=== PATIENT | male | born 1950 | race Caucasian/White ===

== ENCOUNTER 2023-08-12 14:02 | Inpatient (IN) | payer OTHER ==
[~2023-08-12] VITALS: Ht 172.7 cm; Wt 86.2 kg
[2023-08-12] VITALS (10 sets, daily range): BP systolic 84–146; BP diastolic 53–81; TEMP 98.1; O2SAT 95–100
[2023-08-12] MEDS ORDERED: ONDANSETRON HCL/PF 4 MG/2 ML VIAL ONE (14:16)
[2023-08-12 14:29] LABS: BASOPHILS # (AUTO) 0.1 K/uL (0.0-0.2); BASOPHILS % (AUTO) 0.7 % (0.0-2.0); EOSINOPHILS % (AUTO) 0.1 % (0.0-6.0); HEMATOCRIT 49 % (39-51); HEMOGLOBIN 16.5 g/dL (13.5-17.5); LYMPHOCYTES # (AUTO) 1.5 K/uL (0.8-4.8); LYMPHOCYTES % (AUTO) 10.1 % (20.0-44.0); MEAN CORPUSCULAR HEMOGLOBIN 30 PG (26.0-33.0); MEAN CORPUSCULAR HGB CONC 34 g/dl (31.0-36.0); MEAN CORPUSCULAR VOLUME 90 fL (80-96); MONOCYTES # (AUTO) 0.6 K/uL (0.1-1.30); MONOCYTES % (AUTO) 3.9 % (2.0-12.0); NEUTROPHILS # (AUTO) 12.3 K/uL (1.8-8.9); NEUTROPHILS % (AUTO) 85.2 % (43.0-81.0); PLATELET COUNT (AUTO) 231 K/uL (150-450); RED BLOOD CELL COUNT(AUTO) 5.49 MIL/uL (4.5-6.0); RED CELL DISTRIBUTION WIDTH 13.9 % (11.5-15.0); WHITE BLOOD COUNT (AUTO) 14.4 K/uL (4.3-11.0)
[2023-08-12] MEDS ORDERED: IV NS 0.9% 1,000 ML BAG IV ONE (14:30)
[2023-08-12 14:39] LABS: ABG OXYGEN SATURATION 96.5 % (92.0-98.5); ABG PCO2 40.7 mmHg (35.0-45.0); ABG PH 7.178 (7.350-7.450); ABG PO2 80.6 mmHg (75.0-100.0); ABG TOTAL HEMOGLOBIN 17.9 G/dL (13.5-18.0); COHb 0.9 % (0.5-1.5); MetHb 0.6 % (0.0-1.5); O2Hb 95.1 % (94.0-97.0); SITE, ABG Right Radial; VENT MODE, BG 15L NRB
[2023-08-12] MEDS ORDERED: NALOXONE PREFILLED SYRINGE 2 MG/2 ML SYRINGE ONE (14:41)
[2023-08-12] MEDS ORDERED: LABETALOL HCL IV 100MG VIAL ONE (14:41)
[2023-08-12 14:46] LABS: APPEARANCE,URINE CLEAR (CLEAR); BILIRUBIN,URINE 1+ (NEGATIVE); BLOOD, URINE 1+ Ery/uL (NEGATIVE); COLOR,URINE YELLOW (YELLOW); KETONES,URINE TRACE mg/dL (NEGATIVE); LEUKOCYTE ESTERASE ,URINE NEGATIVE (NEGATIVE); NITRITE, URINE NEGATIVE (NEGATIVE); PROTEIN,URINE 2+ mg/dl (NEGATIVE); UGLUCOSE TRACE mg/dL (NEGATIVE)
[2023-08-12] MEDS ORDERED: PROPOFOL 100 ML ONE (14:57)
[2023-08-12 14:59] LABS: ACETAMINOPHEN < 10 ug/ml (10-30); ALANINE AMINOTRANSFERASE 188 U/L (12-78); ALCOHOL, BLOOD < 3 mg/dL (0-10); ALKALINE PHOSPHATASE 87 U/L (46-116); ASPARTATE AMINOTRANSFERASE 93 U/L (15-37); BILIRUBIN,DIRECT 0.2 mg/dL (0.0-0.2); BILIRUBIN,TOTAL 0.6 mg/dL (0.2-1.0); CARBON DIOXIDE 24 mmol/L (21-32); CHLORIDE 101 mmol/L (98-107); CREATININE 4.1 mg/dL (0.6-1.3); GLUCOSE 142 mg/dL (74-106); SODIUM SERUM 136 mmol/L (136-145); TOTAL PROTEIN, SERUM 7.2 g/dL (6.4-8.2); UREA NITROGEN, BLOOD 33 mg/dL (7-18)
[2023-08-12] MEDS ORDERED: LABETALOL 20 MG/4 ML VIAL IV ONE (15:00)
[2023-08-12] MEDS ORDERED: NALOXONE HCL 0.4 MG/ML AMPUL IV ONE (15:00)
[2023-08-12 15:01] LABS: CREATINE KINASE, TOTAL 2337 U/L (39-308)
[2023-08-12 15:04] LABS: LACTIC ACID 4.1 mmol/L (0.4-2.0)
[2023-08-12 15:05] LABS: AMPHETAMINE, URINE NEGATIVE (NEGATIVE); BARBITURATE, URINE NEGATIVE (NEGATIVE); BENZODIAZEPINE, URINE NEGATIVE (NEGATIVE); CANNABINOID, URINE NEGATIVE (NEGATIVE); COCCAINE, URINE NEGATIVE (NEGATIVE); PHENCYCLIDINE SCREEN,URINE NEGATIVE (NEGATIVE); SALICYLATE 0.7 mg/dL (2.8-20.0)
[2023-08-12 15:06] LABS: POTASSIUM 6.2 mmol/L (3.5-5.1)
[2023-08-12 15:07] LABS: OPIATE, URINE POSITIVE (NEGATIVE)
[2023-08-12] MEDS ORDERED: TERA10CA4 PO (15:13)
[2023-08-12] MEDS ORDERED: OXYC1TAB12 PO (15:13)
[2023-08-12] MEDS ORDERED: LIDO30AD10 TP (15:13)
[2023-08-12] MEDS ORDERED: OMEP-99 PO (15:13)
[2023-08-12] MEDS ORDERED: FLUT16SP16 (15:13)
[2023-08-12] MEDS ORDERED: IBUP-1957 PO (15:13)
[2023-08-12] MEDS ORDERED: FINA5TAB11 PO (15:13)
[2023-08-12] MEDS ORDERED: DULO20CA19 PO (15:13)
[2023-08-12] MEDS ORDERED: GABA600T12 PO (15:13)
[2023-08-12] MEDS ORDERED: ROSU10TA29 PO (15:13)
[2023-08-12] MEDS ORDERED: METO25TA20 PO (15:13)
[2023-08-12] MEDS ORDERED: ROCURONIUM BROMIDE 100 MG/10 ML VIAL IV ONE (15:30)
[2023-08-12] MEDS ORDERED: ETOMIDATE 2 MG/ML VIAL IV ONE (15:30)
[2023-08-12] MEDS ORDERED: PROPOFOL 100 ML IV ONE (15:30)
[2023-08-12 15:34] LABS: ADD URINE CULTURE NO; BACTERIA,URINE RARE /HPF (None Seen); COARSE GRANULAR CASTS,URINE Few /LPF (None Seen); HYALINE CASTS, URINE Few /LPF (None Seen); WBC,URINE 0-2 /HPF (0-3)
[2023-08-12] MEDS ORDERED: VANCOMYCIN 1 GM in IV D5W 250 ML IV ONE (17:00)
[2023-08-12] MEDS ORDERED: ACETYLCYSTEINE 20% ORAL SOLN 6,000 MG/30 ML VIAL PO ONE ×2 (17:00)
[2023-08-12] MEDS ORDERED: FAMOTIDINE/PF INJ 20 MG/2 ML VIAL IV SCH (17:00)
[2023-08-12] MEDS ORDERED: PIPERACILLIN /TAZOBACTAM 3.375 G in IV D5W 50 ML IV SCH (17:00)
[2023-08-12] MEDS ORDERED: CEFEPIME 1 GM in IV D5W 50 ML IV ONE (17:00)
[2023-08-12] MEDS: IV NS 0.9% 250 ML IV PRN (17:44)
[2023-08-12] MEDS: Sodium Bicarbonate 100 MEQ in IV D5W 1,000 ML IV SCH (17:52)
[2023-08-12] MEDS: ZOSYN IVPB 2.25 G in IV D5W 50ml IV SCH ×2 (17:53→23:18)
[2023-08-12] MEDS ORDERED: IV LR 1000 ML 1,000 ML IV PRN ×2 (19:30)
[2023-08-12] MEDS ORDERED: Z GUARD REMEDY 4 OZ OINT TP PRN (19:30)
[2023-08-12] MEDS ORDERED: NOREPINEPHRINE 8 MG in IV NS 0.9% 242 ML IV PRN (19:30)
[2023-08-12] MEDS ORDERED: JEVITY 1.2 CAL 1,000 ML BOTTLE GT PRN (20:00)
[2023-08-12 20:13] LABS: LACTIC ACID 4.4 mmol/L (0.4-2.0)
[2023-08-12 20:15] LABS: THYROID STIMULATING HORMONE 1.616 uIU/mL (0.358-3.74)
[2023-08-12] MEDS ORDERED: ENOXAPARIN SODIUM 40 MG/0.4 ML DISP.SYRIN SQ SCH (21:30)
[2023-08-12] MEDS: PANTOPRAZOLE 40 MG VIAL IV SCH (21:51)
[2023-08-12] MEDS ORDERED: ENOXAPARIN SODIUM 30 MG/0.3 ML DISP.SYRIN SQ SCH (22:00)
[2023-08-12] MEDS: NOREPINEPHRINE 8 MG in IV NS 0.9% 242 ML IV PRN (23:16)
[2023-08-13] VITALS (92 sets, daily range): BP systolic 89–132; BP diastolic 51–61; TEMP 97.6–98; O2SAT 22–100
[2023-08-13] MEDS ORDERED: PIPERACILLIN /TAZOBACTAM 3.375 G in IV D5W 50 ML IV SCH ×2
[2023-08-13 00:44] LABS: HEMOGLOBIN 15.2 g/dL (13.5-17.5)
[2023-08-13] MEDS: Sodium Bicarbonate 100 MEQ in IV D5W 1,000 ML IV SCH ×3 (03:14→18:38)
[2023-08-13 04:30] LABS: ABG BASE EXCESS -5.6 mmol/L; ABG OXYGEN SATURATION 97.4 % (92.0-98.5); ABG PCO2 37.9 mmHg (35.0-45.0); ABG PH 7.332 (7.350-7.450); ABG PO2 95.5 mmHg (75.0-100.0); ABG TOTAL HEMOGLOBIN 15.9 G/dL (13.5-18.0); AaDO2 290.6 mmHg; COHb 0.7 % (0.5-1.5); MetHb 0.2 % (0.0-1.5); O2Hb 96.5 % (94.0-97.0); PEEP,BG 5 cm H2O; SITE, ABG Right Radial
[2023-08-13] MEDS: ZOSYN IVPB 2.25 G in IV D5W 50ml IV SCH ×4 (05:05→23:41)
[2023-08-13 05:06] LABS: EOSINOPHILS % (AUTO) 0.2 % (0.0-6.0); HEMATOCRIT 44 % (39-51); HEMOGLOBIN 15.1 g/dL (13.5-17.5); LYMPHOCYTES # (AUTO) 1.9 K/uL (0.8-4.8); LYMPHOCYTES % (AUTO) 13.9 % (20.0-44.0); MEAN CORPUSCULAR HEMOGLOBIN 30 PG (26.0-33.0); MEAN CORPUSCULAR HGB CONC 35 g/dl (31.0-36.0); MEAN CORPUSCULAR VOLUME 87 fL (80-96); MONOCYTES # (AUTO) 0.8 K/uL (0.1-1.30); MONOCYTES % (AUTO) 6.3 % (2.0-12.0); NEUTROPHILS # (AUTO) 10.8 K/uL (1.8-8.9); NEUTROPHILS % (AUTO) 79.6 % (43.0-81.0); PLATELET COUNT (AUTO) 201 K/uL (150-450); RED BLOOD CELL COUNT(AUTO) 5.04 MIL/uL (4.5-6.0); WHITE BLOOD COUNT (AUTO) 13.5 K/uL (4.3-11.0)
[2023-08-13 05:20] LABS: ALBUMIN 2.7 g/dL (3.4-5.0); BILIRUBIN,DIRECT 0.3 mg/dL (0.0-0.2); BILIRUBIN,TOTAL 0.7 mg/dL (0.2-1.0); TOTAL PROTEIN, SERUM 5.6 g/dL (6.4-8.2)
[2023-08-13 05:23] LABS: CALCIUM, SERUM 8.2 mg/dL (8.5-10.1); CARBON DIOXIDE 21 mmol/L (21-32); CHLORIDE 99 mmol/L (98-107); CREATININE 4.3 mg/dL (0.6-1.3); GLUCOSE 174 mg/dL (74-106); MAGNESIUM 1.9 mg/dL (1.8-2.4); PHOSPHORUS 4.7 mg/dL (2.5-4.9); SODIUM SERUM 136 mmol/L (136-145); UREA NITROGEN, BLOOD 42 mg/dL (7-18)
[2023-08-13 05:42] LABS: CHOLESTEROL 64 mg/dL (<200); HDL CHOLESTEROL 31 mg/dL (40-60); LDL 22 mg/dL (0-99); TRIGLYCERIDES 134 mg/dL (30-150)
[2023-08-13] MEDS: PANTOPRAZOLE 40 MG VIAL IV SCH ×2 (08:18→20:57)
[2023-08-13] MEDS ORDERED: PANTOPRAZOLE 40 MG VIAL IV SCH (09:00)
[2023-08-13 11:35] LABS: CREATININE, URINE 123.4 MG/DL (30.0-125.0); URINE TOTAL PROTEIN 190.7 mg/dL (0-11.9)
[2023-08-13 11:45] LABS: APPEARANCE,URINE CLOUDY (CLEAR); BILIRUBIN,URINE NEGATIVE (NEGATIVE); BLOOD, URINE 3+ Ery/uL (NEGATIVE); COLOR,URINE DARK YELLOW (YELLOW); KETONES,URINE TRACE mg/dL (NEGATIVE); LEUKOCYTE ESTERASE ,URINE NEGATIVE (NEGATIVE); NITRITE, URINE NEGATIVE (NEGATIVE); PROTEIN,URINE 2+ mg/dl (NEGATIVE); UGLUCOSE NEGATIVE (NEGATIVE); UROBILINOGEN,URINE 0.2 EU/dL (0.2)
[2023-08-13 11:56] LABS: ADD URINE CULTURE NO; BACTERIA,URINE Few /HPF (None Seen); CALCIUM OXALATE CRYSTALS,UR Rare /HPF (None Seen); WBC,URINE 0-2 /HPF (0-3)
[2023-08-13 11:57] LABS: COARSE GRANULAR CASTS,URINE Few /LPF (None Seen); SQUAMOUS EPITHELIAL CELL,UR Few /HPF (None Seen)
[2023-08-13 13:27] LABS: EOSINOPHIL,URINE None Seen
[2023-08-14] VITALS (70 sets, daily range): BP systolic 96–157; BP diastolic 54–130; TEMP 97.2–98.6; O2SAT 92–98
[2023-08-14] MEDS: NOREPINEPHRINE 8 MG in IV NS 0.9% 242 ML IV PRN (00:11)
[2023-08-14] MEDS: Sodium Bicarbonate 100 MEQ in IV D5W 1,000 ML IV SCH ×4 (03:16→21:04)
[2023-08-14] MEDS: ZOSYN IVPB 2.25 G in IV D5W 50ml IV SCH ×4 (05:05→23:08)
[2023-08-14 05:13] LABS: BASOPHILS % (AUTO) 0.2 % (0.0-2.0); EOSINOPHILS % (AUTO) 0.1 % (0.0-6.0); HEMATOCRIT 37 % (39-51); LYMPHOCYTES # (AUTO) 1.9 K/uL (0.8-4.8); LYMPHOCYTES % (AUTO) 14.8 % (20.0-44.0); MEAN CORPUSCULAR HEMOGLOBIN 30 PG (26.0-33.0); MEAN CORPUSCULAR HGB CONC 35 g/dl (31.0-36.0); MEAN CORPUSCULAR VOLUME 87 fL (80-96); MONOCYTES # (AUTO) 0.9 K/uL (0.1-1.30); MONOCYTES % (AUTO) 7.2 % (2.0-12.0); NEUTROPHILS # (AUTO) 10.1 K/uL (1.8-8.9); NEUTROPHILS % (AUTO) 77.7 % (43.0-81.0); PLATELET COUNT (AUTO) 139 K/uL (150-450); RED BLOOD CELL COUNT(AUTO) 4.28 MIL/uL (4.5-6.0)
[2023-08-14 05:38] LABS: ALANINE AMINOTRANSFERASE 98 U/L (12-78); ALKALINE PHOSPHATASE 73 U/L (46-116); ASPARTATE AMINOTRANSFERASE 140 U/L (15-37); BILIRUBIN,TOTAL 0.8 mg/dL (0.2-1.0); CALCIUM, SERUM 8.2 mg/dL (8.5-10.1); CARBON DIOXIDE 29 mmol/L (21-32); CHLORIDE 92 mmol/L (98-107); CREATININE 5.8 mg/dL (0.6-1.3); GLUCOSE 261 mg/dL (74-106); MAGNESIUM 1.9 mg/dL (1.8-2.4); PHOSPHORUS 5.2 mg/dL (2.5-4.9); POTASSIUM 3.8 mmol/L (3.5-5.1); SODIUM SERUM 132 mmol/L (136-145); TOTAL PROTEIN, SERUM 4.9 g/dL (6.4-8.2); UREA NITROGEN, BLOOD 57 mg/dL (7-18)
[2023-08-14 05:46] LABS: CREATINE KINASE, TOTAL 4202 U/L (39-308)
[2023-08-14] MEDS: PANTOPRAZOLE 40 MG VIAL IV SCH ×2 (08:33→20:26)
[2023-08-14] MEDS ORDERED: ROCURONIUM BROMIDE 50 MG/5 ML IV ONE (10:44)
[2023-08-14] MEDS ORDERED: ETOMIDATE 2 MG/ML VIAL IV ONE (10:44)
[2023-08-14] MEDS: ATORVASTATIN 40 MG TABLET NG SCH ×2 (13:44→21:04)
[2023-08-14] MEDS: ASPIRIN EC 81 MG TABLET.DR PO SCH (13:44)
[2023-08-14] MEDS ORDERED: JEVITY 1.2 CAL 1,000 ML BOTTLE GT PRN (14:00)
[2023-08-14] MEDS ORDERED: HEPARIN SODIUM, PORCINE 5000 UNITS/1 ML VIAL IV ONE (15:30)
[2023-08-14] MEDS: HEPARIN INFUSION/D5W 500 ML IV PRN (15:59)
[2023-08-14] MEDS ORDERED: VANCOMYCIN 1 GM in IV D5W 250ml IV SCH (20:00)
[2023-08-15] VITALS (49 sets, daily range): BP systolic 81–225; BP diastolic 44–168; TEMP 97.8–98.9; O2SAT 89–100
[2023-08-15 05:23] LABS: BASOPHILS % (AUTO) 0.1 % (0.0-2.0); EOSINOPHILS % (AUTO) 0.3 % (0.0-6.0); HEMATOCRIT 36 % (39-51); HEMOGLOBIN 12.5 g/dL (13.5-17.5); LYMPHOCYTES % (AUTO) 9.8 % (20.0-44.0); MEAN CORPUSCULAR HEMOGLOBIN 30 PG (26.0-33.0); MEAN CORPUSCULAR HGB CONC 35 g/dl (31.0-36.0); MEAN CORPUSCULAR VOLUME 86 fL (80-96); MONOCYTES # (AUTO) 0.5 K/uL (0.1-1.30); MONOCYTES % (AUTO) 5.1 % (2.0-12.0); NEUTROPHILS % (AUTO) 84.7 % (43.0-81.0); PLATELET COUNT (AUTO) 143 K/uL (150-450); RED BLOOD CELL COUNT(AUTO) 4.15 MIL/uL (4.5-6.0); RED CELL DISTRIBUTION WIDTH 13.7 % (11.5-15.0); WHITE BLOOD COUNT (AUTO) 10.6 K/uL (4.3-11.0)
[2023-08-15] MEDS: Sodium Bicarbonate 100 MEQ in IV D5W 1,000 ML IV SCH (05:24)
[2023-08-15] MEDS: ZOSYN IVPB 2.25 G in IV D5W 50ml IV SCH ×4 (05:24→23:58)
[2023-08-15 05:31] LABS: CALCIUM, SERUM 7.9 mg/dL (8.5-10.1); CARBON DIOXIDE 34 mmol/L (21-32); CHLORIDE 93 mmol/L (98-107); CREATININE 5.2 mg/dL (0.6-1.3); GLUCOSE 152 mg/dL (74-106); MAGNESIUM 1.9 mg/dL (1.8-2.4); PHOSPHORUS 5.1 mg/dL (2.5-4.9); SODIUM SERUM 136 mmol/L (136-145); UREA NITROGEN, BLOOD 53 mg/dL (7-18)
[2023-08-15 05:34] LABS: POTASSIUM 2.8 mmol/L (3.5-5.1)
[2023-08-15] MEDS: IV LR 1000 ML 1,000 ML IV PRN (08:34)
[2023-08-15] MEDS: IV NS 0.9% 250 ML IV PRN (08:35)
[2023-08-15 08:37] LABS: ABG BASE EXCESS 10.5 mmol/L; ABG PCO2 47.5 mmHg (35.0-45.0); ABG PH 7.489 (7.350-7.450); ABG TOTAL HEMOGLOBIN 13.6 G/dL (13.5-18.0); AaDO2 153.6 mmHg; COHb 0.5 % (0.5-1.5); O2Hb 94.5 % (94.0-97.0); SITE, ABG Right Radial
[2023-08-15] MEDS: PANTOPRAZOLE 40 MG VIAL IV SCH (08:42)
[2023-08-15] MEDS: ASPIRIN EC 81 MG TABLET.DR PO SCH (08:42)
[2023-08-15] MEDS ORDERED: POTASSIUM CHLORIDE 20 MEQ POWDER PACKET GT ONE ×2 (10:00→11:00)
[2023-08-15] MEDS: PROSOURCE / PROSTAT (PYXIS) 30 ML UDC GT SCH (11:09)
[2023-08-15] MEDS: GLUCERNA 1.2 1,000 ML BOTTLE NG PRN (12:23)
[2023-08-15] MEDS: HEPARIN INFUSION/D5W 500 ML IV PRN (14:23)
[2023-08-15] MEDS: PROPOFOL 100 ML IV PRN ×2 (17:00→23:23)
[2023-08-15] MEDS: PANTOPRAZOLE 40 MG/PACK PACK GT SCH (20:53)
[2023-08-16] VITALS (44 sets, daily range): BP systolic 79–226; BP diastolic 16–145; TEMP 97.8–98.7; O2SAT 91–99
[2023-08-16] MEDS: IV LR 1000 ML 1,000 ML IV PRN ×2 (00:49→20:35)
[2023-08-16 05:41] LABS: BASOPHILS % (AUTO) 0.2 % (0.0-2.0); EOSINOPHILS # (AUTO) 0.2 K/uL (0.0-0.7); EOSINOPHILS % (AUTO) 2.4 % (0.0-6.0); HEMATOCRIT 35 % (39-51); LYMPHOCYTES # (AUTO) 1.6 K/uL (0.8-4.8); LYMPHOCYTES % (AUTO) 19.9 % (20.0-44.0); MEAN CORPUSCULAR HEMOGLOBIN 30 PG (26.0-33.0); MEAN CORPUSCULAR HGB CONC 35 g/dl (31.0-36.0); MEAN CORPUSCULAR VOLUME 87 fL (80-96); MONOCYTES # (AUTO) 0.6 K/uL (0.1-1.30); MONOCYTES % (AUTO) 7.8 % (2.0-12.0); NEUTROPHILS # (AUTO) 5.7 K/uL (1.8-8.9); NEUTROPHILS % (AUTO) 69.7 % (43.0-81.0); PLATELET COUNT (AUTO) 168 K/uL (150-450); RED BLOOD CELL COUNT(AUTO) 3.97 MIL/uL (4.5-6.0); RED CELL DISTRIBUTION WIDTH 13.7 % (11.5-15.0); WHITE BLOOD COUNT (AUTO) 8.1 K/uL (4.3-11.0)
[2023-08-16 05:47] LABS: CALCIUM, SERUM 8.6 mg/dL (8.5-10.1); CARBON DIOXIDE 32 mmol/L (21-32); CHLORIDE 100 mmol/L (98-107); CREATININE 3.8 mg/dL (0.6-1.3); GLUCOSE 96 mg/dL (74-106); MAGNESIUM 2.1 mg/dL (1.8-2.4); PHOSPHORUS 4.4 mg/dL (2.5-4.9); SODIUM SERUM 141 mmol/L (136-145); UREA NITROGEN, BLOOD 52 mg/dL (7-18)
[2023-08-16 05:49] LABS: ALBUMIN 1.9 g/dL (3.4-5.0); BILIRUBIN,DIRECT 0.4 mg/dL (0.0-0.2); BILIRUBIN,TOTAL 0.7 mg/dL (0.2-1.0); TOTAL PROTEIN, SERUM 5.2 g/dL (6.4-8.2)
[2023-08-16 05:51] LABS: POTASSIUM 2.8 mmol/L (3.5-5.1)
[2023-08-16] MEDS: ZOSYN IVPB 2.25 G in IV D5W 50ml IV SCH ×4 (06:00→23:45)
[2023-08-16 07:06] LABS: PTH, INTACT 201 pg/mL (15-65)
[2023-08-16] MEDS: PROPOFOL 100 ML IV PRN (07:09)
[2023-08-16] MEDS ORDERED: VANCOMYCIN 1 GM in IV D5W 250ml IV SCH (08:00)
[2023-08-16 08:06] LABS: CREATININE KINASE (CK),MB 9.3 ng/mL (0.0-10.4)
[2023-08-16] MEDS: ASPIRIN EC 81 MG TABLET.DR PO SCH (09:00)
[2023-08-16] MEDS: GLUCERNA 1.2 1,000 ML BOTTLE NG PRN (09:30)
[2023-08-16] MEDS: PANTOPRAZOLE 40 MG/PACK PACK GT SCH ×2 (09:42→21:05)
[2023-08-16] MEDS: POTASSIUM CHLORIDE 20 MEQ POWDER PACKET NG SCH ×5 (09:42→12:17)
[2023-08-16] MEDS: PROSOURCE / PROSTAT (PYXIS) 30 ML UDC GT SCH (09:42)
[2023-08-16] MEDS: HEPARIN SODIUM, PORCINE 5000 UNITS/1 ML VIAL SQ SCH ×2 (09:43→20:52)
[2023-08-16] MEDS ORDERED: LANOLIN/MIN OIL/PETROLAT,WHT 3.5 GM TUBE EACHEYE PRN (11:30)
[2023-08-16 12:07] LABS: *SPE A/G RATIO 1.2 (0.7-1.7); *SPE ALBUMIN 2.3 g/dL (2.9-4.4); *SPE ALPHA-1-GLOBULIN 0.4 g/dL (0.0-0.4); *SPE ALPHA-2-GLOBULIN 0.6 g/dL (0.4-1.0); *SPE BETA GLOBULIN 0.6 g/dL (0.7-1.3); *SPE M-SPIKE Not Observed g/dL (Not Observed); *SPE PROTEIN TOTAL 4.3 g/dL (6.0-8.5); *SPEGAMMA GLOBULIN 0.5 g/dL (0.4-1.8)
[2023-08-16 12:51] LABS: ABG BASE EXCESS 7.3 mmol/L; ABG OXYGEN SATURATION 94.1 % (92.0-98.5); ABG PCO2 43.5 mmHg (35.0-45.0); ABG PO2 70.9 mmHg (75.0-100.0); ABG TOTAL HEMOGLOBIN 13.8 G/dL (13.5-18.0); AaDO2 164.3 mmHg; COHb 0.6 % (0.5-1.5); O2Hb 93.5 % (94.0-97.0); SITE, ABG Right Radial
[2023-08-16] MEDS: hydrALAZINE HCL IV 20 MG VIAL IV PRN ×3 (12:55→21:06)
[2023-08-16] MEDS: POTASSIUM CL. PREMIX PERIPHER. 50 ML IV SCH ×6 (13:57→20:41)
[2023-08-16] MEDS: IV NS 0.9% 250 ML IV PRN (17:37)
[2023-08-16] MEDS: LABETALOL 20 MG/4 ML VIAL IV PRN (18:44)
[2023-08-16] MEDS: POLYVINYL ALCOHOL 15 ML BOTTLE LEFTEYE PRN ×2 (18:51→20:38)
[2023-08-16] MEDS ORDERED: POTASSIUM CL. PREMIX PERIPHER. 50 ML IV SCH (21:00)
[2023-08-16] MEDS ORDERED: QUETIAPINE FUMARATE 100 MG TABLET PO SCH ×2 (22:00)
[2023-08-16] MEDS ORDERED: CLONIDINE HCL 0.1 MG TABLET PO ONE (23:30)
[2023-08-17] VITALS (21 sets, daily range): BP systolic 133–191; BP diastolic 58–123; TEMP 98.2–99.3; O2SAT 89–98
[2023-08-17] MEDS: hydrALAZINE HCL IV 20 MG VIAL IV PRN (01:34)
[2023-08-17 05:11] LABS: BASOPHILS % (AUTO) 0.3 % (0.0-2.0); EOSINOPHILS # (AUTO) 0.1 K/uL (0.0-0.7); EOSINOPHILS % (AUTO) 0.9 % (0.0-6.0); HEMATOCRIT 37 % (39-51); LYMPHOCYTES # (AUTO) 1.3 K/uL (0.8-4.8); LYMPHOCYTES % (AUTO) 15.3 % (20.0-44.0); MEAN CORPUSCULAR HEMOGLOBIN 31 PG (26.0-33.0); MEAN CORPUSCULAR HGB CONC 35 g/dl (31.0-36.0); MEAN CORPUSCULAR VOLUME 88 fL (80-96); MONOCYTES # (AUTO) 0.9 K/uL (0.1-1.30); MONOCYTES % (AUTO) 11.3 % (2.0-12.0); NEUTROPHILS # (AUTO) 5.9 K/uL (1.8-8.9); NEUTROPHILS % (AUTO) 72.2 % (43.0-81.0); PLATELET COUNT (AUTO) 226 K/uL (150-450); RED BLOOD CELL COUNT(AUTO) 4.23 MIL/uL (4.5-6.0); RED CELL DISTRIBUTION WIDTH 13.3 % (11.5-15.0); WHITE BLOOD COUNT (AUTO) 8.2 K/uL (4.3-11.0)
[2023-08-17 05:21] LABS: CALCIUM, SERUM 9.6 mg/dL (8.5-10.1); CARBON DIOXIDE 27 mmol/L (21-32); CHLORIDE 105 mmol/L (98-107); CREATININE 2.6 mg/dL (0.6-1.3); GLUCOSE 105 mg/dL (74-106); MAGNESIUM 2.1 mg/dL (1.8-2.4); PHOSPHORUS 3.4 mg/dL (2.5-4.9); POTASSIUM 3.8 mmol/L (3.5-5.1); SODIUM SERUM 142 mmol/L (136-145); UREA NITROGEN, BLOOD 44 mg/dL (7-18)
[2023-08-17] MEDS: ZOSYN IVPB 2.25 G in IV D5W 50ml IV SCH ×3 (05:30→17:00)
[2023-08-17] MEDS: PANTOPRAZOLE 40 MG/PACK PACK GT SCH ×2 (08:17→21:32)
[2023-08-17] MEDS: ASPIRIN EC 81 MG TABLET.DR PO SCH (08:20)
[2023-08-17] MEDS: PROSOURCE / PROSTAT (PYXIS) 30 ML UDC GT SCH (08:20)
[2023-08-17] MEDS: HEPARIN SODIUM, PORCINE 5000 UNITS/1 ML VIAL SQ SCH ×2 (08:20→21:33)
[2023-08-17] MEDS ORDERED: AMLODIPINE BESYLATE 10 MG TABLET NG SCH (09:00)
[2023-08-17] MEDS ORDERED: AMLODIPINE BESYLATE 10 MG TABLET GT SCH (09:00)
[2023-08-17] MEDS ORDERED: VALSARTAN 80 MG TABLET NG SCH ×2 (09:00)
[2023-08-17] MEDS: LABETALOL 20 MG/4 ML VIAL IV PRN (13:06)
[2023-08-17] MEDS ORDERED: PROSOURCE / PROSTAT (PYXIS) 30 ML UDC PO SCH (14:30)
[2023-08-17] MEDS ORDERED: CLONIDINE HCL 0.1 MG TABLET PO PRN (15:30)
[2023-08-17] MEDS ORDERED: VANCOMYCIN HCL 0.75 GM in IV D5W 250 ML IV SCH (16:00)
[2023-08-17] MEDS: IV 1/2NS 1000 ML 1,000 ML IV PRN (16:08)
[2023-08-17] MEDS: CLONIDINE HCL 0.1 MG TABLET PO PRN (17:06)
[2023-08-17] MEDS: TRAZODONE 50 MG TABLET PO SCH ×2 (21:32→23:08)
[2023-08-18] VITALS: BP 164/75; TEMP 98.5; O2SAT 93
[2023-08-18] MEDS: ZOSYN IVPB 2.25 G in IV D5W 50ml IV SCH ×5 (00:44→23:49)
[2023-08-18] MEDS: hydrALAZINE HCL IV 20 MG VIAL IV PRN ×3 (01:26→17:11)
[2023-08-18 04:00] VITALS: BP 148/65; TEMP 98.6; O2SAT 95
[2023-08-18 08:00] VITALS: BP 159/74; TEMP 98; O2SAT 94
[2023-08-18] MEDS: HEPARIN SODIUM, PORCINE 5000 UNITS/1 ML VIAL SQ SCH ×2 (09:00→21:00)
[2023-08-18] MEDS: ASPIRIN EC 81 MG TABLET.DR PO SCH (09:09)
[2023-08-18] MEDS: DULOXETINE HCL 30 MG CAPSULE.DR PO SCH (09:11)
[2023-08-18] MEDS: PANTOPRAZOLE 40 MG/PACK PACK PO SCH ×2 (09:11→21:12)
[2023-08-18] MEDS: VALSARTAN 80 MG TABLET PO SCH (09:11)
[2023-08-18] MEDS: AMLODIPINE BESYLATE 10 MG TABLET PO SCH (09:12)
[2023-08-18 09:28] LABS: BASOPHILS % (AUTO) 0.3 % (0.0-2.0); EOSINOPHILS # (AUTO) 0.2 K/uL (0.0-0.7); HEMATOCRIT 39 % (39-51); HEMOGLOBIN 13.1 g/dL (13.5-17.5); LYMPHOCYTES # (AUTO) 1.6 K/uL (0.8-4.8); LYMPHOCYTES % (AUTO) 15.9 % (20.0-44.0); MEAN CORPUSCULAR HEMOGLOBIN 30 PG (26.0-33.0); MEAN CORPUSCULAR HGB CONC 34 g/dl (31.0-36.0); MEAN CORPUSCULAR VOLUME 88 fL (80-96); MONOCYTES # (AUTO) 0.9 K/uL (0.1-1.30); MONOCYTES % (AUTO) 9.4 % (2.0-12.0); NEUTROPHILS # (AUTO) 7.2 K/uL (1.8-8.9); NEUTROPHILS % (AUTO) 72.4 % (43.0-81.0); PLATELET COUNT (AUTO) 286 K/uL (150-450); RED BLOOD CELL COUNT(AUTO) 4.41 MIL/uL (4.5-6.0); RED CELL DISTRIBUTION WIDTH 13.8 % (11.5-15.0)
[2023-08-18] MEDS: ENSURE ENLIVE 237 ML LIQUID (VANILLA) PO SCH (09:36)
[2023-08-18 09:43] LABS: CALCIUM, SERUM 9.8 mg/dL (8.5-10.1); CARBON DIOXIDE 24 mmol/L (21-32); CHLORIDE 107 mmol/L (98-107); CREATININE 1.8 mg/dL (0.6-1.3); GLUCOSE 179 mg/dL (74-106); MAGNESIUM 1.8 mg/dL (1.8-2.4); PHOSPHORUS 2.7 mg/dL (2.5-4.9); POTASSIUM 3.3 mmol/L (3.5-5.1); SODIUM SERUM 141 mmol/L (136-145); UREA NITROGEN, BLOOD 45 mg/dL (7-18)
[2023-08-18 12:00] VITALS: BP 177/78; TEMP 98.4; O2SAT 95
[2023-08-18] MEDS ORDERED: CLONIDINE HCL 0.1MG/24H PTWK 1 EA PATCH TD SCH (14:00)
[2023-08-18 16:00] VITALS: BP 175/75; TEMP 98.2; O2SAT 94
[2023-08-18] MEDS: METOPROLOL TARTRATE 50 MG TABLET PO SCH ×2 (17:11→21:11)
[2023-08-18] MEDS: VANCOMYCIN 1 GM in IV D5W 250ml IV SCH (17:13)
[2023-08-18 17:25] LABS: OCCULT BLOOD STOOL NEGATIVE (NEGATIVE)
[2023-08-18] MEDS ORDERED: POTASSIUM CHLORIDE 20 MEQ TAB.PRT.SR PO ONE (18:30)
[2023-08-18 20:00] VITALS: BP 160/74; TEMP 99; O2SAT 94
[2023-08-18] MEDS: TRAZODONE 50 MG TABLET PO SCH (21:11)
[2023-08-18] MEDS: IV 1/2NS 1000 ML 1,000 ML IV PRN (22:41)
[2023-08-19] VITALS: BP 166/65; TEMP 99; O2SAT 96
[2023-08-19] MEDS: hydrALAZINE HCL IV 20 MG VIAL IV PRN ×3 (00:28→16:44)
[2023-08-19 04:23] VITALS: BP 172/65; TEMP 98.6; O2SAT 96
[2023-08-19] MEDS: LABETALOL 20 MG/4 ML VIAL IV PRN (04:27)
[2023-08-19] MEDS: ZOSYN IVPB 2.25 G in IV D5W 50ml IV SCH ×3 (05:07→17:57)
[2023-08-19 06:07] LABS: CALCIUM, SERUM 9.6 mg/dL (8.5-10.1); CARBON DIOXIDE 21 mmol/L (21-32); CHLORIDE 108 mmol/L (98-107); CREATININE 1.4 mg/dL (0.6-1.3); GLUCOSE 114 mg/dL (74-106); MAGNESIUM 1.8 mg/dL (1.8-2.4); PHOSPHORUS 3.1 mg/dL (2.5-4.9); POTASSIUM 3.3 mmol/L (3.5-5.1); SODIUM SERUM 142 mmol/L (136-145); UREA NITROGEN, BLOOD 47 mg/dL (7-18)
[2023-08-19 06:11] LABS: BASOPHILS % (AUTO) 0.3 % (0.0-2.0); EOSINOPHILS # (AUTO) 0.1 K/uL (0.0-0.7); EOSINOPHILS % (AUTO) 1.1 % (0.0-6.0); HEMATOCRIT 38 % (39-51); HEMOGLOBIN 12.9 g/dL (13.5-17.5); LYMPHOCYTES # (AUTO) 2.2 K/uL (0.8-4.8); LYMPHOCYTES % (AUTO) 16.6 % (20.0-44.0); MEAN CORPUSCULAR HEMOGLOBIN 30 PG (26.0-33.0); MEAN CORPUSCULAR HGB CONC 34 g/dl (31.0-36.0); MEAN CORPUSCULAR VOLUME 87 fL (80-96); MONOCYTES # (AUTO) 1.5 K/uL (0.1-1.30); MONOCYTES % (AUTO) 11.1 % (2.0-12.0); NEUTROPHILS # (AUTO) 9.5 K/uL (1.8-8.9); NEUTROPHILS % (AUTO) 70.9 % (43.0-81.0); PLATELET COUNT (AUTO) 326 K/uL (150-450); RED BLOOD CELL COUNT(AUTO) 4.33 MIL/uL (4.5-6.0); RED CELL DISTRIBUTION WIDTH 13.5 % (11.5-15.0); WHITE BLOOD COUNT (AUTO) 13.4 K/uL (4.3-11.0)
[2023-08-19 08:00] VITALS: BP 174/73; TEMP 98.8; O2SAT 95
[2023-08-19] MEDS: PANTOPRAZOLE 40 MG/PACK PACK PO SCH ×2 (09:54→21:34)
[2023-08-19] MEDS: AMLODIPINE BESYLATE 10 MG TABLET PO SCH (09:56)
[2023-08-19] MEDS: METOPROLOL TARTRATE 50 MG TABLET PO SCH ×2 (09:57→21:36)
[2023-08-19] MEDS: VALSARTAN 80 MG TABLET PO SCH (09:57)
[2023-08-19] MEDS: HEPARIN SODIUM, PORCINE 5000 UNITS/1 ML VIAL SQ SCH ×2 (09:58→21:37)
[2023-08-19] MEDS: DULOXETINE HCL 30 MG CAPSULE.DR PO SCH (10:29)
[2023-08-19] MEDS: POTASSIUM CHLORIDE 20 MEQ TAB.PRT.SR PO SCH ×3 (10:29→13:18)
[2023-08-19] MEDS: ENSURE ENLIVE 237 ML LIQUID (VANILLA) PO SCH (10:46)
[2023-08-19 12:00] VITALS: BP 178/68; TEMP 98.8; O2SAT 95
[2023-08-19] MEDS ORDERED: CLONIDINE HCL 0.2MG/24H PTWK 1 EA PATCH TD SCH (13:00)
[2023-08-19 16:00] VITALS: BP 175/69; TEMP 98.7; O2SAT 96
[2023-08-19] MEDS: VANCOMYCIN 1 GM in IV D5W 250ml IV SCH (16:43)
[2023-08-19 20:00] VITALS: BP 168/77; TEMP 98.3; O2SAT 95
[2023-08-19] MEDS: TRAZODONE 50 MG TABLET PO SCH (21:34)
[2023-08-20] VITALS: BP 168/77; TEMP 98.3; O2SAT 95
[2023-08-20] MEDS: ZOSYN IVPB 2.25 G in IV D5W 50ml IV SCH ×5 (00:14→23:55)
[2023-08-20] MEDS: VANCOMYCIN HCL 0.75 GM in IV D5W 250 ML IV SCH ×2 (03:57→16:11)
[2023-08-20 04:00] VITALS: BP 176/84; TEMP 97.9; O2SAT 96
[2023-08-20] MEDS: CLONIDINE HCL 0.1 MG TABLET PO PRN (05:16)
[2023-08-20 05:51] LABS: BASOPHILS # (AUTO) 0.1 K/uL (0.0-0.2); BASOPHILS % (AUTO) 0.6 % (0.0-2.0); EOSINOPHILS # (AUTO) 0.3 K/uL (0.0-0.7); EOSINOPHILS % (AUTO) 2.1 % (0.0-6.0); HEMATOCRIT 40 % (39-51); HEMOGLOBIN 13.7 g/dL (13.5-17.5); LYMPHOCYTES # (AUTO) 2.7 K/uL (0.8-4.8); LYMPHOCYTES % (AUTO) 16.9 % (20.0-44.0); MEAN CORPUSCULAR HEMOGLOBIN 30 PG (26.0-33.0); MEAN CORPUSCULAR HGB CONC 34 g/dl (31.0-36.0); MEAN CORPUSCULAR VOLUME 87 fL (80-96); MONOCYTES # (AUTO) 1.4 K/uL (0.1-1.30); MONOCYTES % (AUTO) 8.6 % (2.0-12.0); NEUTROPHILS # (AUTO) 11.6 K/uL (1.8-8.9); NEUTROPHILS % (AUTO) 71.8 % (43.0-81.0); PLATELET COUNT (AUTO) 367 K/uL (150-450); RED BLOOD CELL COUNT(AUTO) 4.61 MIL/uL (4.5-6.0); RED CELL DISTRIBUTION WIDTH 13.5 % (11.5-15.0); WHITE BLOOD COUNT (AUTO) 16.1 K/uL (4.3-11.0)
[2023-08-20 06:12] LABS: ALANINE AMINOTRANSFERASE 78 U/L (12-78); ALBUMIN 2.8 g/dL (3.4-5.0); ALKALINE PHOSPHATASE 136 U/L (46-116); ASPARTATE AMINOTRANSFERASE 45 U/L (15-37); BILIRUBIN,TOTAL 0.9 mg/dL (0.2-1.0); CALCIUM, SERUM 9.8 mg/dL (8.5-10.1); CARBON DIOXIDE 21 mmol/L (21-32); CHLORIDE 108 mmol/L (98-107); CREATININE 1.3 mg/dL (0.6-1.3); GLUCOSE 124 mg/dL (74-106); PHOSPHORUS 3.1 mg/dL (2.5-4.9); POTASSIUM 3.4 mmol/L (3.5-5.1); SODIUM SERUM 141 mmol/L (136-145); TOTAL PROTEIN, SERUM 6.4 g/dL (6.4-8.2); UREA NITROGEN, BLOOD 43 mg/dL (7-18)
[2023-08-20 06:36] LABS: BAND % (MANUAL) 1 % (0.0-5.0); EOSINOPHILS % (MANUAL) 4 % (0-4); LYMPHOCYTES % (MANUAL) 21 % (16-48); MONOCYTES % (MANUAL) 8 % (0-11.0); NEUTROPHILS % (MANUAL) 64 (42-76); REACTIVE LYMPHOCYTES 2 % (0-0)
[2023-08-20 06:37] LABS: PLATELET ESTIMATE ADEQUATE
[2023-08-20 08:00] VITALS: BP 176/84; TEMP 97.9; O2SAT 96
[2023-08-20] MEDS: POTASSIUM CHLORIDE 20 MEQ TAB.PRT.SR PO SCH ×3 (08:17→09:58)
[2023-08-20] MEDS: METOPROLOL TARTRATE 50 MG TABLET PO SCH ×4 (08:23→23:56)
[2023-08-20] MEDS: PANTOPRAZOLE 40 MG/PACK PACK PO SCH ×2 (08:48→21:10)
[2023-08-20] MEDS: AMLODIPINE BESYLATE 10 MG TABLET PO SCH (08:49)
[2023-08-20] MEDS: DULOXETINE HCL 30 MG CAPSULE.DR PO SCH (08:49)
[2023-08-20] MEDS: VALSARTAN 80 MG TABLET PO SCH (08:50)
[2023-08-20] MEDS: hydrALAZINE HCL 50 MG TABLET PO SCH ×3 (08:50→16:49)
[2023-08-20] MEDS: HEPARIN SODIUM, PORCINE 5000 UNITS/1 ML VIAL SQ SCH ×2 (08:55→21:13)
[2023-08-20] MEDS: ENSURE ENLIVE 237 ML LIQUID (VANILLA) PO SCH (09:15)
[2023-08-20] MEDS: NITROGLYCERIN 30 GM TUBE TP SCH ×2 (09:59→21:10)
[2023-08-20 12:00] VITALS: BP 158/80; TEMP 97.9; O2SAT 96
[2023-08-20 16:00] VITALS: BP 143/65; TEMP 98.8
[2023-08-20 20:00] VITALS: BP 157/60; TEMP 98
[2023-08-20] MEDS: TRAZODONE 50 MG TABLET PO SCH (21:10)
[2023-08-21 03:43] LABS: BASOPHILS # (AUTO) 0.1 K/uL (0.0-0.2); BASOPHILS % (AUTO) 0.5 % (0.0-2.0); EOSINOPHILS # (AUTO) 0.5 K/uL (0.0-0.7); EOSINOPHILS % (AUTO) 2.5 % (0.0-6.0); HEMATOCRIT 41 % (39-51); HEMOGLOBIN 13.6 g/dL (13.5-17.5); LYMPHOCYTES # (AUTO) 1.7 K/uL (0.8-4.8); LYMPHOCYTES % (AUTO) 9.3 % (20.0-44.0); MEAN CORPUSCULAR HEMOGLOBIN 29 PG (26.0-33.0); MEAN CORPUSCULAR HGB CONC 33 g/dl (31.0-36.0); MEAN CORPUSCULAR VOLUME 89 fL (80-96); MONOCYTES # (AUTO) 1.1 K/uL (0.1-1.30); NEUTROPHILS # (AUTO) 15.2 K/uL (1.8-8.9); NEUTROPHILS % (AUTO) 81.7 % (43.0-81.0); PLATELET COUNT (AUTO) 385 K/uL (150-450); RED BLOOD CELL COUNT(AUTO) 4.64 MIL/uL (4.5-6.0); RED CELL DISTRIBUTION WIDTH 13.5 % (11.5-15.0); WHITE BLOOD COUNT (AUTO) 18.5 K/uL (4.3-11.0)
[2023-08-21 04:00] VITALS: BP 176/63; TEMP 98.2
[2023-08-21 04:14] LABS: CALCIUM, SERUM 9.5 mg/dL (8.5-10.1); CARBON DIOXIDE 20 mmol/L (21-32); CHLORIDE 110 mmol/L (98-107); CREATININE 1.1 mg/dL (0.6-1.3); GLUCOSE 98 mg/dL (74-106); PHOSPHORUS 3.3 mg/dL (2.5-4.9); POTASSIUM 3.8 mmol/L (3.5-5.1); SODIUM SERUM 142 mmol/L (136-145); UREA NITROGEN, BLOOD 38 mg/dL (7-18)
[2023-08-21 04:27] LABS: EOSINOPHILS % (MANUAL) 3 % (0-4); LYMPHOCYTES % (MANUAL) 18 % (16-48); MONOCYTES % (MANUAL) 4 % (0-11.0); NEUTROPHILS % (MANUAL) 75 (42-76); PLATELET ESTIMATE ADEQUATE
[2023-08-21] MEDS: VANCOMYCIN HCL 0.75 GM in IV D5W 250 ML IV SCH (04:30)
[2023-08-21] MEDS: METOPROLOL TARTRATE 50 MG TABLET PO SCH ×3 (05:22→17:26)
[2023-08-21] MEDS: ZOSYN IVPB 2.25 G in IV D5W 50ml IV SCH ×3 (05:30→17:25)
[2023-08-21] MEDS: IV 1/2NS 1000 ML 1,000 ML IV PRN (05:47)
[2023-08-21 08:00] VITALS: BP 179/73; TEMP 99.4; O2SAT 96
[2023-08-21] MEDS: PANTOPRAZOLE 40 MG/PACK PACK PO SCH ×2 (08:12→21:15)
[2023-08-21] MEDS: hydrALAZINE HCL 50 MG TABLET PO SCH ×3 (08:12→17:26)
[2023-08-21] MEDS: AMLODIPINE BESYLATE 10 MG TABLET PO SCH (08:13)
[2023-08-21] MEDS: DULOXETINE HCL 30 MG CAPSULE.DR PO SCH (08:13)
[2023-08-21] MEDS: VALSARTAN 80 MG TABLET PO SCH (08:13)
[2023-08-21] MEDS: NITROGLYCERIN 30 GM TUBE TP SCH ×2 (08:14→21:16)
[2023-08-21] MEDS: ENSURE ENLIVE 237 ML LIQUID (VANILLA) PO SCH (08:14)
[2023-08-21] MEDS: HEPARIN SODIUM, PORCINE 5000 UNITS/1 ML VIAL SQ SCH ×3 (08:15→21:00)
[2023-08-21 08:35] VITALS: BP 168/63; TEMP 98.8; O2SAT 98
[2023-08-21 16:00] VITALS: BP 146/61; TEMP 98.8; O2SAT 97
[2023-08-21] MEDS: TRAZODONE 50 MG TABLET PO SCH (21:15)
[2023-08-21 22:00] VITALS: BP 146/66; TEMP 98.6; O2SAT 95
[2023-08-21] MEDS: hydrALAZINE HCL IV 20 MG VIAL IV PRN (22:43)
[2023-08-21 22:45] VITALS: BP 165/65; TEMP 98.8; O2SAT 95
== END 2023-08-22 00:57 | disposition short-term general hospital (02) | DRG 917 ==
LOC: ER 14:02 → ICU 16:02 → TELE1 08-17 18:38 → MEDSG1 08-18 09:44
PROVIDERS: ADMIT Nurse Practitioner Acute Care; ATTEND Nurse Practitioner Acute Care
PROC: 5A1945Z Respiratory Ventilation, 24-96 Consecutive Hours (ICD-10-PCS; 2023-08-12)
PROC: 0BH17EZ Insertion of Endotracheal Airway into Trachea, Via Natural or Artificial Opening (ICD-10-PCS; 2023-08-12)
PROC: 0D9670Z Drainage of Stomach with Drainage Device, Via Natural or Artificial Opening (ICD-10-PCS; 2023-08-12)
PROC: 05HB33Z Insertion of Infusion Device into Right Basilic Vein, Percutaneous Approach (ICD-10-PCS; principal; 2023-08-13)
DX: T40.2X2A Poisoning by other opioids, intentional self-harm, initial encounter (principal); A41.9 Sepsis, unspecified organism; G93.41 Metabolic encephalopathy; J69.0 Pneumonitis due to inhalation of food and vomit; J96.01 Acute respiratory failure with hypoxia; J96.02 Acute respiratory failure with hypercapnia; J18.9 Pneumonia, unspecified organism; I21.4 Non-ST elevation (NSTEMI) myocardial infarction; K72.00 Acute and subacute hepatic failure without coma; F33.3 Major depressive disorder, recurrent, severe with psychotic symptoms; N17.9 Acute kidney failure, unspecified; M62.82 Rhabdomyolysis; E87.20 Acidosis, unspecified; K57.92 Diverticulitis of intestine, part unspecified, without perforation or abscess without bleeding; Y92.59 Other trade areas as the place of occurrence of the external cause; E78.5 Hyperlipidemia, unspecified; Z79.899 Other long term (current) drug therapy; Z81.8 Family history of other mental and behavioral disorders; Z90.49 Acquired absence of other specified parts of digestive tract; B30.9 Viral conjunctivitis, unspecified; I11.9 Hypertensive heart disease without heart failure; I70.0 Atherosclerosis of aorta; I25.10 Atherosclerotic heart disease of native coronary artery without angina pectoris; N40.0 Benign prostatic hyperplasia without lower urinary tract symptoms; S30.0XXA Contusion of lower back and pelvis, initial encounter; X58.XXXA Exposure to other specified factors, initial encounter; F11.10 Opioid abuse, uncomplicated; E87.6 Hypokalemia; E87.5 Hyperkalemia; K57.90 Diverticulosis of intestine, part unspecified, without perforation or abscess without bleeding; M54.17 Radiculopathy, lumbosacral region; G89.29 Other chronic pain; R80.9 Proteinuria, unspecified; K20.90 Esophagitis, unspecified without bleeding; R31.9 Hematuria, unspecified; T44.7X2A Poisoning by beta-adrenoreceptor antagonists, intentional self-harm, initial encounter
CPT/HCPCS: 31720; 36415; 36600; 70450-TC; 71045-TC; 74018; 76770-TC; 80048-TC; 80053-TC; 80061-TC; 80076-TC; 80202-TC; 81001; 82272-TC; 82550-TC; 82553; 82570-TC; 82803-TC; 83605-TC; 83735-TC; 83970; 84100-TC; 84155; 84165; 84300-TC; 84443-TC; 84484-TC; 85025-TC; 85027-TC; 85730-TC; 92526; 92611-TC; 93307-TC; 94003-TC; 94799-TC; 97112-TC; 97530-TC; 99082-TC; A4223; C9113; G0378; G0480; J0360; J0692; J1644; J1650; J2310; J2405; J2543; J3370; J3480; J3490; J7050; J7060; J7070; J7120